=== PATIENT | female | born 1970 | race Caucasian/White ===

== ENCOUNTER 2019-12-18 12:58 | Emergency (ER) | payer OTHER, SELFPAY ==
[2019-12-18 12:59] VITALS: BP 141/78; PULSE 83; RESP 16; TEMP 36.7; O2SAT 96; BMI 31.1
--- NOTE | 2019-12-18 13:04 | RAD_ITS ---
STUDY: X-RAY - LEFT HAND REASON FOR EXAM: Female, 49 years old. LACERATION ACROSS FINGERS. COPRA SAMPLER VS HAND. TECHNIQUE: 3 view(s) of the hand. COMPARISON: None. FINDINGS: Normal radiocarpal articulation. Normal distal radioulnar joint. Normal visualized carpal bones. Normal carpal articulations Normal carpometacarpal articulation of the thumb. Normal second through fifth carpometacarpal joints. Normal metacarpi. Normal metacarpophalangeal joint of the thumb. Normal interphalangeal joint of the thumb. Normal proximal and distal phalanges of the thumb. Normal metacarpophalangeal joints of the second through fifth fingers. Normal proximal and distal interphalangeal joints of the second through fifth fingers. Normal phalanges of the second through fifth fingers. Soft tissue swelling of the distal third digit consistent with a known laceration. RAD/Hand Min 3 Views IMPRESSION: Laceration of the distal third digit but no fracture, dislocation, radiopaque foreign body. Electronically Signed: John Morse MD at 13:59 EDT Tel , Service support ,
[2019-12-18] MEDS: morphine 8 MG/ML Syringe SC (13:26)
[2019-12-18] MEDS: Ondansetron ODT 4 MG Tablet 8 MG PO (13:28)
--- NOTE | 2019-12-18 13:34 | ED.VIS.GEN ---
History of Present Illness Chief Complaint: Laceration Informant: Patient, Family Onset: Today Maximum Severity: Mild Narrative: Laceration to left hand long finger today. 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 placed her hand in a japanese professor device that she thought was turned off suffered laceration to left long finger she is right-hand dominant tetanus is up-to-date, she lives in [facility], history of being a cancer survivor, Past Medical History - Allergies and Home Meds Allergies/Adverse Reactions: Allergies codeine Allergy (Verified 12/18/19 13:01) Swelling metronidazole [From Flagyl] Allergy (Verified 12/18/19 13:01) Swelling Penicillins Allergy (Verified 12/18/19 13:01) Swelling Primary Care Physician: JOSSIE LEWIS [Other] Past Medical History: - - Cancer survivor see the above Review of Systems General: Denies: Chills, Fever, Sweats Eyes: Denies: Visual changes - bilaterally, Diplopia ENT: Denies: Rhinorrhea, Sore throat Cardiovascular: Denies: Chest pain, Palpitations Respiratory: Denies: Dyspnea, Cough, Dyspnea on exertion Gastrointestinal: Denies: Abdominal pain, Nausea, Vomiting, Diarrhea, Melena, Hematochezia Genitourinary: Denies: Dysuria, Hematuria, Frequency Musculoskeletal: Reports: Extremity Pain. Denies: Back pain Skin: Denies: Rash, Wounds Neurological: Denies: Headache, Weakness, Numbness Physical Exam Vital Signs/Narrative: Vital Signs Temp Pulse Resp BP Pulse Ox 12/18/19 12:59 98.0 F 83 16 141/78 H 96 General: Well nourished, Well developed, No Acute Distress Head: Normocephalic, Atraumatic Eyes: Perrl, EOMI ENT: Moist mucous membranes, No rhinorrhea Neck: Supple, Nontender Cardiovascular: Regular rate, Regular rhythm, No murmurs Respiratory: No distress, CTA bilaterally, Chest nontender Abdomen: Soft, Nontender, Nondistended, Normal bowel sounds Back: Nontender, Normal Inspection Extremities: - - Her only injuries left hand left hand there are some scattered abrasions and next to the hand the main injury involves the left long finger flexor surface there is a laceration involving the skin over the distal middle and proximal third phalanx there is some missing tissue and there is a flap of skin over the more proximal phalanx of that digit she is able to flex and extend limited by pain thumb function is normal dorsal plantar hand unremarkable wrist forearm unremarkable has intact sensation to the tips of her fingers Skin: Normal color, No rash Neurological: Alert, Oriented x3, Cranial nerves II-XII grossly intact, Normal Strength, Normal Sensation Psychological: Normal affect, Normal Mood Diagnostic/Tx/Re-eval - Medical Decision Making X-ray was obtained that shows nothing acute no obvious fracture, discussed this complex laceration with patient and her explained that she would need to see hand team and there were no hand physicians available to see her at this facility at this time because they live in [facility] they agreed to transfer via private vehicle to [facility], we have provided local wound care bulky hand dressing pain management, spoke with [facility] transfer line hand attending they agreed accept patient transfer to be seen at the [facility] emergency department for the management Family will take the patient there directly via private vehicle she has been given morphine for pain we provided local wound care bulky hand dressing bleeding is controlled she is comfortable with discharge to [facility] with family, ED attending excepting is Dr. Mcintyre Disposition transfer to [facility] via family vehicle Impression final complex laceration involving left hand related to japanese professor accident ED Disposition - Plan for ED Patient: Disposition: [facility] Diagnosis: Complex laceration left hand Referrals: JOSSIE LEWIS [Other]
--- NOTE | 2019-12-18 13:58 | ED.RN ---
report given to [facility]. family and pt instructed to take packet and go to er. no further questions. waiting on radiology images
--- NOTE | 2019-12-18 14:11 | ED.RN ---
given dressing supplies to reinforce if needed. rad. disk and visit summary in hand. dc to trasport to [facility] by private car
== END 2019-12-18 14:12 | disposition short-term general hospital (02) ==
PROVIDERS: Emergency Provider Emergency Medicine
DX: S61.213A Laceration without foreign body of left middle finger without damage to nail, initial encounter (principal); W29.0XXA Contact with powered kitchen appliance, initial encounter; Y93.89 Activity, other specified; Y92.89 Other specified places as the place of occurrence of the external cause; Y99.8 Other external cause status
CPT/HCPCS: 73130; 96372; 99283